=== PATIENT | male | born 1995 | race African-American/Black ===

== ENCOUNTER 2021-02-12 18:25 | Emergency (ER) | payer OTHER ==
[~2021-02-12] VITALS: Ht 180.3 cm; Wt 120.5 kg
[2021-02-12] MEDS ORDERED: KETOROLAC TROMETHAMINE 60 MG/2 ML VIAL IM ONE (20:15)
[2021-02-12] MEDS ORDERED: METHOCARBAMOL 500 MG TABLET PO ONE (20:15)
[2021-02-12 21:10] VITALS: BP 137/76
== END 2021-02-12 21:25 | disposition home or self-care (01) ==
LOC: EMS 18:28
DX: S43.491A Other sprain of right shoulder joint, initial encounter (principal); S33.5XXA Sprain of ligaments of lumbar spine, initial encounter; V43.62XA Car passenger injured in collision with other type car in traffic accident, initial encounter; Y93.89 Activity, other specified; Y92.488 Other paved roadways as the place of occurrence of the external cause; Y99.8 Other external cause status
CPT/HCPCS: 73030; 96372; 99283; J1885